=== PATIENT | male | born 1990 | race Caucasian/White ===

== ENCOUNTER → 2016-09-07 | Day surgery (SDC) | payer OTHER ==
[~2016-09-07] VITALS: Ht 188 cm; Wt 81.9 kg
[~2016-09-07] MED LIST: *morphine SULFATE 8 MG/ML PERIprocedure ONLY ONE; ACETAMINOPHEN 1000 MG/100 ML VIAL IV ONE; ACETAMINOPHEN/HYDROcodone 325 MG/7.5 MG TAB PO PRN; BUPIVACAINE/EPINEPHRINE 0.5% PF 30 ML VIAL ONE; CHLORHEXIDINE GLUCONATE 2 % 1 PACK (2 CLOTHS) TOPICAL PRN; CHLORHEXIDINE GLUCONATE 4% SOLN 120 ML BTL TOPICAL SCH; DO NOT ADM ANY ANTICOAGULANT DRUGS PRN; FAMOTIDINE 20 MG/2 ML VIAL ONE; GENTAMICIN SULFATE 80 MG/2 ML VIAL ONE; HYDR-3288 PO; INSULIN HUMAN REGULAR 1,000 UNITS/10 ML VIAL SQ PRN; KETAMINE HCL 500 MG/5 ML VIAL IV ONE; LACTATED RINGER'S 1000 ML INJ 1,000 ML IV ONE; LACTATED RINGER'S 1000 ML IV PRN; METOPROLOL TARTRATE 25 MG TAB PO PRN; MIDAZOLAM HCL 2 MG/2 ML VIAL ONE; MORPHINE SULFATE 4 MG/ML INJ IV PUSH PRN; NEOSTIGMINE 3 MG/3 ML SYR IV ONE; ONDANSETRON HCL 4 MG/2 ML VIAL IV PUSH ONE; ONDANSETRON HCL 4 MG/2 ML VIAL ONE; PHENYLEPH/NS 1000 MCG/10 ML SYR IV ONE; POVIDONE IODINE 5% (ANTISEPSIS KIT) 4 APPLICATIONS EACH NARE PRN; POVIDONE IODINE 7.5% SCRUB 118 ML BOTTLE TOPICAL SCH; PROPOFOL 200 MG/20 ML AMP IV ONE; SODIUM CHLORID 0.9% 500 ML IV PRN; SODIUM CHLORIDE 0.9% FLUSH 10 ML FLUSH IV FLUSH PRN; SODIUM CHLORIDE 0.9% FLUSH 10 ML FLUSH IV FLUSH SCH; VANCOMYCIN 1000 MG/NS 250 ML (for <70 kg) IV SCH; ceFAZolin 2 GM PREMIX 50 ML IV SCH; fentaNYL CITRATE 250 MCG/5 ML AMP ONE
[2016-09-07 10:10] VITALS: BP 151/93; PULSE 79; RESP 20; TEMP 98.3; O2SAT 100
--- NOTE | 2016-09-07 15:50 | PD.OP ---
cc: Gio Velazquez MD Operative Report Date of Surgery: Sep 07, 2016 Preoperative Diagnosis: Left clavicle atrophic nonunion Postoperative Diagnosis: Same Procedure: Left clavicle open reduction and internal fixation with repair of nonunion. Application of cancellous allograft chips. Anesthesia: Gen. Surgeon: Gio Velazquez Recycling Operator(s): ANTWAN Ruffin The surgical procedure was assisted by my Advanced Registered Nurse Practitioner. My IT RECRUITER presence was necessary throughout this case for the manipulation and positioning of the surgical extremity. My IT RECRUITER was assisting me throughout the duration of this procedure. The skill set of an Advance Registered Nurse Practitioner was medically necessary to complete this procedure. During the surgical case, the nursing techn was working at the back table and the Advance Registered Nurse Practitioner was directly assisting me. Operation and Findings: Estimated blood loss: 25 cc. The patient was brought back to the operative theater. He received intravenous vancomycin and Ancef as antibiotics. He was placed into a beachchair position. The head and neck were secured in a neutral position. The left upper extremity was prepped and draped in the usual sterile fashion. We gave infiltration of a quarter percent Marcaine with epinephrine into the clavicular region. We made standard incision over the clavicle. We dissected over the fascia of the clavicle. We tried to preserve as much muscle attachment as possible both superiorly and anteriorly. We identified the displaced atrophic nonunion. We resected significant amount of scar tissue. We squared off the edges of the clavicle both medially and laterally with a rongeur in order to obtain a good bed of bone that would heal and also to maximize the surface area touching each other again to maximize the area for healing. We were then able to anatomically reduce the clavicle. We did contour a Synthes clavicular plate to fit his particular anatomy. This required some twisting and bending of the plate. We applied the 7-hole plate in the superior fashion. This was secured with a combination of locking and nonlocking screws. We had excellent purchase in the bone. The fracture remained in excellent position. The wound was thoroughly irrigated. We took final fluoroscopic images and saved these. We then applied cancellous bone graft around the edges of the previous clavicle nonunion. We closed overlying fascia with 0 Vicryl followed by 2-0 Vicryl for skin and 3- 0 nylon. The arm was dressed and the patient was placed into a sling. Postoperative plan: Early range of motion. Gio Velazquez MD Sep 07, 2016 15:50
--- NOTE | 2016-09-07 16:53 | RADRPT ---
EXAM DATE/TIME: 09/07/2016 15:28 [facility] COMPARISON: No previous studies available for comparison. INDICATIONS : Open reduction internal fixation of the left clavicle. MEDICAL HISTORY : None. SURGICAL HISTORY : None. ENCOUNTER: Initial ACUITY: 1 day PAIN SCORE: Non-responsive. LOCATION: Left clavicle. FINDINGS: 3 views of the left clavicle are recorded digitally using C-arm in the operating room. There is a pl ate and screw device in place. CONCLUSION: Intraoperative images. Frank Hare MD on September 07, 2016 at 16:50 Board Certified Radiologist. This report was verified electronically.
[2016-09-07 18:25] VITALS: BP 127/69; PULSE 91; RESP 16; TEMP 97.5; O2SAT 99
== END | disposition home or self-care (01) ==
LOC: HSDC 09:23
PROVIDERS: ATTEND Orthopaedic Surgery
DX: S42.002K Fracture of unspecified part of left clavicle, subsequent encounter for fracture with nonunion (principal)
CPT/HCPCS: 00450; 23515; 73000; 76000; C1713; J0131; J0690; J1580; J2250; J2270; J2370; J2405; J2710; J3010; J3370; J7050; J7120